=== PATIENT | female | born 1945 | race Caucasian/White ===

== ENCOUNTER → 2016-11-02 | Outpatient (CLI) | payer MEDICARE, BC ==
--- NOTE | ~2016-11-02 | MY29 ---
[facility] A Service of [facility] RADIOLOGY TEXT RESULTS PATIENT: BOYD BLANCAS LOCATION: [facility] : 43 UNIT #: [id number] AGE: [address]: Jonna Patel SEX: F ORDER DR: [id number] [facility] [address] [place], [place] [address] [id number] O MR#: [id number] Acc #: [id number] NAME: BOYD BLANCAS : 1945 SEX: F STUDY DATE/TIME: 11/02/2016 10:28 UNIT: [facility] ROOM: STUDY DESCRIPTION: MY FRANTZ SCREENING W/ CAD BILAT Attending Physician: Jonna Patel A.P.R.N. Referring Physician: Jonna Patel A.P.R.N. Ordering Physician: Jonna Patel A.P.R.N. Primary Care Physician: Jonna Patel A.P.R.N. MEDICAL IMAGING REPORT This report is preliminary unless electronic signature is present EXAM Digital screening mammogram 11/02/2016. [facility] HISTORY 71-year-old woman positive family history, maternal aunt. Previous left breast biopsy. Annual screen. COMPARISON: 12/20/2007, 03/12/2010, 11/04/2011 FINDINGS Digital imaging of each breast was completed utilizing standard craniocaudal and mediolateral-oblique projections. Review and interpretation of digital mammograms include a second review in conjunction with FDA-approved CAD device. There is an overall increase in the parenchymal presentation bilaterally with a generalized fibronodular pattern in each breast. There are no breast masses and I see no asymmetry in the parenchymal presentation. There are no suspicious microcalcifications and I see no architectural disturbance. IMPRESSION Benign mammogram. One-year followup recommended. Patients over the age of 40 are entered into a reminder system with target due date for the next mammogram. A result letter will also be sent to the patient. BIRADS: 2 Benign finding [facility] A Service of [facility] RADIOLOGY TEXT RESULTS PATIENT: BOYD BLANCAS LOCATION: [facility] : 43 UNIT #: [id number] AGE: [address]: Jonna Patel SEX: F ORDER DR: Dictated by... Jas Wong M.D. THIS IS AN ELECTRONICALLY VERIFIED REPORT Jas Wong M.D. at 11/02/2016 12:46 PM BRENDA/jen TD: 11/02/2016 11:20 JOB #: [id number] MEDICAL IMAGING REPORT Page 1 of 1 COPY
== END | disposition home or self-care (01) ==
LOC: CWCC 10:00
DX: Z12.31 Encounter for screening mammogram for malignant neoplasm of breast (principal); Z80.3 Family history of malignant neoplasm of breast
CPT/HCPCS: G0202